=== PATIENT | male | born 1995 | race Caucasian/White ===

== ENCOUNTER 2017-01-27 20:15 | Emergency (ER) | payer OTHER ==
[~2017-01-27] VITALS: Ht 182.9 cm; Wt 81.6 kg
--- NOTE | 2017-01-27 20:55 | NUR ---
Pt came from triage c/o of 08/12 headache x 2 days, 4 days prior, pt was c/o of no sleep,denies n/v, alert oriented x 4 ambulatory with steady gait. No weakness noted. VS stable BP 133/77, 100% RA.Accompanied by relative.
--- NOTE | 2017-01-27 21:04 | NUR ---
Seen by Dr. Mix.
[2017-01-27] MEDS ORDERED: HYDROCODONE/APAP 5-325MG TABLET PO ONE (21:15)
--- NOTE | 2017-01-27 21:15 | NUR ---
Tyler 5/325 1 tab given as prescribed.
--- NOTE | 2017-01-27 21:17 | NUR ---
Perry ZAPATA conducting NIHSS.
[2017-01-27] MEDS ORDERED: HYDROCODONE/APAP 5-325MG TABLET ONE (21:23)
--- NOTE | 2017-01-27 21:30 | NUR ---
Pain level decreased to 4/10.Pt stated he felt a lot better.
--- NOTE | 2017-01-27 21:50 | NUR ---
Patient discharged to home in stable conditon. Written and verbal after care instructions given. Patient verbalizes understanding of instructions.Prescriptions given: Amoxicillin, [place] and Colace, instructions given and verbalized understanding.
[2017-01-27 22:05] VITALS: BP 123/75
== END 2017-01-27 21:50 | disposition home or self-care (01) ==
LOC: ER 20:19
DX: R51 Headache (principal)
CPT/HCPCS: A4663